=== PATIENT | male | born 1995 | race Two or more races ===

== ENCOUNTER 2023-03-06 17:54 | Emergency (ER) | payer MEDICAID ==
[~2023-03-06] VITALS: Ht 170.2 cm; Wt 73.5 kg
[2023-03-06 18:10] VITALS: BP 147/75; TEMP 97.5; O2SAT 99
[2023-03-06] MEDS ORDERED: IBUP-1955 PO (19:27)
== END 2023-03-06 19:33 | disposition home or self-care (01) ==
LOC: ER 18:00
DX: N50.811 Right testicular pain (principal); Z79.899 Other long term (current) drug therapy
CPT/HCPCS: 76870-TC